=== PATIENT | female | born 1945 | race Caucasian/White ===

== ENCOUNTER 2016-09-15 09:19 | Inpatient (IN) | payer MEDICARE ==
[2016-09-15] VITALS (7 sets, daily range): BP systolic 117–171; BP diastolic 62–83
[~2016-09-15] VITALS: Ht 165.1 cm; Wt 63.5 kg
[~2016-09-15 09:19] MED LIST: BIOT10008 PO; CHOLTAB PO; COQ-100C2 PO; ESTR10CR PV; FISH1000 PO; LUTE20TA PO; MULT1TAB10 PO
[2016-09-15] MEDS ORDERED: LR 1,000 ML IV ONE (09:30)
[2016-09-15] MEDS ORDERED: LR 1,000 ML IV SCH ×2 (09:30→15:00)
[2016-09-15] MEDS ORDERED: ROCURONIUM BROMIDE 50 MG/5 ML VIAL/SYRINGE As Ordered ONE (10:51)
[2016-09-15] MEDS ORDERED: MIDAZOLAM INJ 2 MG/2 ML VIAL (J2250) As Ordered ONE (10:51)
[2016-09-15] MEDS ORDERED: fentaNYL 250 MCG/5 ML INJECTION (J3010) As Ordered ONE (10:51)
[2016-09-15] MEDS ORDERED: PROPOFOL 200 MG/20 ML VIAL As Ordered ONE (10:51)
[2016-09-15] MEDS ORDERED: dexameTHASONE 4 MG/ML 1ML VIAL (J1100) As Ordered ONE ×2 (10:51→12:22)
[2016-09-15] MEDS ORDERED: LIDOCAINE 2% INJ 100 MG/5 ML SDV (FOR ANES.) As Ordered ONE (10:51)
[2016-09-15] MEDS ORDERED: ONDANSETRON 4MG/2ML VIAL (J2405) As Ordered ONE (10:51)
[2016-09-15] MEDS ORDERED: VASOPRESSIN INJ 20 UNITS/ML VIAL As Ordered ONE (11:20)
[2016-09-15] MEDS ORDERED: ePHEDrine SULFATE 25 MG/5 ML(5MG/ML) SYRINGE As Ordered ONE (12:05)
[2016-09-15] MEDS ORDERED: PHENYLephrine HCL 500 MCG/5 ML (100MCG/ML) SYRINGE (J2370) As Ordered ONE (12:05)
[2016-09-15] MEDS ORDERED: METOCLOPRAMIDE INJ 10MG/2ML VIAL (J2765) As Ordered ONE (12:22)
[2016-09-15] MEDS ORDERED: SEVOFLURANE INHAL SOLN 250 ML BTL As Ordered ONE (12:24)
[2016-09-15] MEDS ORDERED: HYDROmorphone HCL 2 MG/ML 1ML VIAL (J1170) As Ordered ONE (12:28)
[2016-09-15] MEDS ORDERED: NEOSTIGMINE 1MG/ML 5 ML SYRINGE (J2710) As Ordered ONE (12:28)
[2016-09-15] MEDS ORDERED: GLYCOPYRROLATE INJ 0.2 MG/ML 2 ML VIAL As Ordered ONE (12:28)
[2016-09-15] MEDS ORDERED: KETOROLAC 60 MG/2 ML VIAL (J1885) As Ordered ONE (12:28)
[2016-09-15] MEDS ORDERED: MORPHINE 1MG/ML IN 0.9% NACL 100ML IV BAG As Ordered ONE (14:49)
[2016-09-15] MEDS ORDERED: PERCOCET 5MG/325MG TAB PO PRN (15:00)
[2016-09-15] MEDS ORDERED: fentaNYL 100 MCG/2 ML INJECTION (J3010) IV PRN (15:00)
[2016-09-15] MEDS ORDERED: METOCLOPRAMIDE INJ 10MG/2ML VIAL (J2765) IV PRN (15:00)
[2016-09-15] MEDS ORDERED: ONDANSETRON 4MG/2ML VIAL (J2405) IV PRN ×2 (15:00→17:00)
[2016-09-15] MEDS ORDERED: IBUPROFEN 600 MG TAB PO PRN ×2 (15:00→19:00)
[2016-09-15] MEDS ORDERED: EPIDURAL/PCA KEYS XX PRN (17:00)
[2016-09-15] MEDS ORDERED: diphenhydrAMINE INJ 50MG/ML VIAL (J1200) IV PRN (17:00)
[2016-09-15] MEDS ORDERED: NALBUPHINE HCL 10 MG/ML AMP (J2300) IV PRN (17:00)
[2016-09-15] MEDS ORDERED: NALOXONE INJ 0.4 MG/1 ML VIAL (J2310) IV PRN (17:00)
[2016-09-15] MEDS ORDERED: MORPHINE 1MG/ML IN 0.9% NACL 100ML IV BAG IV PRN (17:00)
[2016-09-15] MEDS: LR 1,000 ML IV SCH (17:16)
[2016-09-16] VITALS: BP 115/61
[2016-09-16] MEDS: LR 1,000 ML IV SCH ×2 (01:21→07:00)
[2016-09-16 04:15] VITALS: BP 146/73
[2016-09-16] MEDS ORDERED: NORCO, ANEXSIA 5/325MG TABLET (HYDROcodone/ACETAMINOPHEN) PO PRN (06:00)
[2016-09-16 06:41] LABS: MEAN CORPUSCULAR HEMOGLOBIN 31.7 pg (27.0-33.0); MEAN CORPUSCULAR VOLUME 93.3 fl (80.0-96.0); WHITE BLOOD COUNT 10.2 K/mm3 (4.0-10.0)
--- NOTE | 2016-09-16 07:36 | RO ---
DATE OF PROCEDURE: 09/15/2016 PREPROCEDURE DIAGNOSES: Symptomatic pelvis prolapse. Stress urinary incontinence. Urethral hypermobility. Failed conservative efforts. POSTPROCEDURE DIAGNOSES: Symptomatic pelvis prolapse. Stress urinary incontinence. Urethral hypermobility. Failed conservative efforts. PROCEDURE: Total vaginal hysterectomy with bilateral salpingectomy. The patient retained her ovaries. She had an anterior and posterior colporrhaphy with a uterosacral colpopexy and a perineorrhaphy and a mid urethral sling, the Solyx mini sling and cystourethroscopy. SURGEON: Dr. Marquita Paige VARNISHING MACHINE OPERATOR: Maria Fernanda Edward. ANESTHESIA: ESTIMATED BLOOD LOSS: BRIEF DESCRIPTION OF PROCEDURE AND FINDINGS: Jennifer was brought to the operating room where sufficient general endotracheal anesthesia was induced and she was prepped and draped and position in the usual sterile fashion with a weighted speculum placed, the bladder emptied and the cervix grasped at the anterior and posterior aspect using single tooth tenaculum. Circumferential incision was made around the base of the cervix where the cardinal ligaments were isolated. They were clamped with the Rutledge clamps which were used throughout this portion of the case and then transected and then #0 Vicryl used to control the pedicles. We then clamped, transected and ligated the uterosacrals which of course were marked for later identification, entered the peritoneum posteriorly, worked our dissection around anteriorly to deflect the bladder and the continued the dissection through the uterine vasculature and applied it until the uterus could be delivered. The mesentery of the tubes were then carefully clamped, transected and ligated as well as were the utero-ovarian suspensory ligaments and the uterus with the attached fallopian tubes were then delivered. The ovaries were visualized. They were normal and small as expected in this 70-year-old patient. Attention was then turned to each pedicle which showed good hemostasis. We then continued the dissection of the vaginal tissues away from the rectovaginal septum and the pubocervical fascia. We then placed traction on the posterior cuff to identify the uterosacrals on each side, two #2-0 Prolene and one #0 Vicryl were placed, the #2-0 Prolene being placed cephalad and then the dissection was continued anteriorly so that we could use the #2-0 Prolene and the pubocervical fascia only on the Prolene, not on the Vicryl so as to maintain optimal length, and then we supported the rectovaginal septum with all three of the sutures on each side and then brought down those sutures in a single throw and kept those under tension and then we turned our attention to the cystourethroscopy where normal jets of urine were seen from both ureters and there was no evidence of injury to the bladder. We then completed the tie of the uterus and sacral suspensory sutures and then continued the dissection of the redundant vaginal tissues and then completed the anterior and posterior colporrhaphy, closed the vaginal cuff then did perineorrhaphy posteriorly and then the Solyx was placed anteriorly with vasopressin injected anteriorly and midline anterior vaginal incision made and the Solyx placed first right side then left as is my typical. We did elevate her feet a little, elevated the stirrups so as to maximize her position for the placement of the sling and then we scoped her again and confirmed absence of injury to the urethra or the bladder with the sling and then closed the wound and the anterior vaginal and then placed the vaginal pack and a Hernández and the procedure was then ended. Estimated blood loss for the procedure: About 30 mL. Fluid replacement: Crystalloid. Complications: None. Condition and disposition: Jennifer tolerated the procedure well and was recovery in the recovery room in good condition.
[2016-09-16 08:00] VITALS: BP 133/70
[2016-09-16] MEDS ORDERED: LORT5TAB PO (08:24)
[2016-09-16] MEDS ORDERED: ADVI200T PO (08:24)
--- NOTE | 2016-09-22 11:08 | DSES ---
DATE OF ADMISSION: 09/15/2016 DATE OF DISCHARGE: 09/16/2016 ADMITTING/FINAL DIAGNOSIS: Symptomatic pelvic prolapse and incontinence, urethral hypermobility. PRINCIPAL PROCEDURE: Total vaginal hysterectomy with bilateral salpingectomy, midurethral sling placement with cystourethroscopy. Anterior and posterior repair for colporrhaphy and vaginal colpopexy with ureterosacral suspension. BRIEF SUMMARY OF PATIENT HOSPITAL PRESENTATION/HOSPITAL COURSE: Jennifer presented on 09/15/2016 as a 70-year-old 3, para 3-0-0-2 with symptomatic pelvic prolapse and incontinence as noted in the history and physical. She had a past medical history of hypercholesterolemia, prolapse, glasses. Surgical history of tubal ligation, laminectomy and tonsillectomy. Family history showed cancer. Social history showed she was a nonsmoker, nondrug user. She had no known drug allergies, but was allergic to latex. Medications include Estrace, multivitamin, biotin, CoQ10, lutein, omega 3, red yeast rice. Physical examination showed an alert, oriented individual with no apparent distress. Clear lungs. Heart regular rate and rhythm. Normal active bowel sounds. Soft, nontender abdomen and of course, the prolapse. INITIAL IMPRESSION: Symptomatic prolapse and incontinence and urethral hypermobility. PLAN: Hysterectomy. Colporrhaphy. Colpopexy. Midurethral sling. Cystourethroscopy. Salpingectomy if able. The surgery, as already noted and as dictated in the operative report, was carried on 09/15/2016 in an uncomplicated fashion. She then continued through an uncomplicated postoperative course and was discharged to home in good condition on 09/16/2016 with plan for outpatient followup discussed with her prior to discharge as well as a review of her plan for followup and physical activity restrictions. She was encouraged to call with questions or problems. The patient expressed understanding of plan.
== END 2016-09-16 10:00 | disposition home or self-care (01) | DRG 743 ==
LOC: M OR 09:19 → M PED 15:40
PROVIDERS: ADMIT Obstetrics & Gynecology; ATTEND Obstetrics & Gynecology
PROC: 0UT78ZZ Resection of Bilateral Fallopian Tubes, Via Natural or Artificial Opening Endoscopic (ICD-10-PCS; 2016-09-15)
PROC: 0UQG8ZZ Repair Vagina, Via Natural or Artificial Opening Endoscopic (ICD-10-PCS; 2016-09-15)
PROC: 0TSD4ZZ Reposition Urethra, Percutaneous Endoscopic Approach (ICD-10-PCS; 2016-09-15)
PROC: 0UT98ZZ Resection of Uterus, Via Natural or Artificial Opening Endoscopic (ICD-10-PCS; principal; 2016-09-15 11:00)
PROC: 0UTC8ZZ Resection of Cervix, Via Natural or Artificial Opening Endoscopic (ICD-10-PCS; 2016-09-15 11:00)
DX: N81.89 Other female genital prolapse (principal); N39.3 Stress incontinence (female) (male); N36.41 Hypermobility of urethra; Z98.51 Tubal ligation status; Z79.899 Other long term (current) drug therapy; Z91.040 Latex allergy status